=== PATIENT | male | born 1965 | race Two or more races ===

== ENCOUNTER → 2017-12-29 | Day surgery (SDC) | payer OTHER ==
[~2017-12-29] MED LIST: PERCOCET 5-3251 EACH PO
== END | disposition home or self-care (01) ==
LOC: ADM 12-23 12:00 → CIR.AMB 06:16
DX: E21.0 Primary hyperparathyroidism (principal); D35.1 Benign neoplasm of parathyroid gland

== ENCOUNTER 2022-03-16 10:04 | Outpatient (CLI) | payer OTHER | END 2022-03-16 10:08 | disposition home or self-care (01) | LOC: SONOGRAMA 10:04 | PROVIDERS: ATTEND Pathology Anatomic Pathology | DX: D44.0 Neoplasm of uncertain behavior of thyroid gland (principal) ==

== ENCOUNTER 2024-06-12 08:54 | Emergency (ER) | payer OTHER ==
[~2024-06-12] VITALS: Ht 172.7 cm; Wt 83.9 kg
[2024-06-12] MEDS ORDERED: ROSUVASTATIN CA10 MG (09:27)
== END 2024-06-12 11:11 | disposition home or self-care (01) ==
LOC: ER 08:57
DX: R13.19 Other dysphagia (principal); E78.00 Pure hypercholesterolemia, unspecified

== ENCOUNTER 2025-01-15 11:52 | Outpatient (CLI) | payer OTHER ==
[~2025-01-15 11:52] MED LIST changes: +ROSUVASTATIN CA10 MG
== END 2025-01-15 11:57 | disposition home or self-care (01) ==
LOC: RAD 11:52
DX: R06.02 Shortness of breath (principal)